=== PATIENT | female | born 1965 | race Caucasian/White ===

== ENCOUNTER → 2017-05-18 | Outpatient (CLI) | payer OTHER ==
[~2017-05-18] MED LIST: HYDR-317 PO; IBUP400T13 PO; KET10 PO; LEVO-85 PO
[2017-05-18 13:10] LABS: PLATELET COUNT, AUTOMATED 282 K/uL (150-450)
== END ==
LOC: LAB 12:51
PROVIDERS: ATTEND Anesthesiology
DX: Z01.812 Encounter for preprocedural laboratory examination (principal); S83.212A Bucket-handle tear of medial meniscus, current injury, left knee, initial encounter; M94.20 Chondromalacia, unspecified site
CPT/HCPCS: 36415; 85025

== ENCOUNTER → 2017-10-18 | Outpatient (CLI) | payer OTHER ==
--- NOTE | 2017-10-18 11:11 | RADIOLOGY IMAGING REPORT ---
FACILITY: [facility] PATIENT NAME: Lesia Waller : 1965 MR: [id number] V: [id number] EXAM DATE: ORDERING PHYSICIAN: GILBERTO EUBANKS TECHNOLOGIST: Location: [facility] Patient: Lesia Waller : 1965 Visit/Account:[id number] Date of Sevice: 10/18/2017 KNEE LEFT W/O CONTRAST COMPARISON: MRI left knee 03/14/2017 HISTORY: Postoperative 05/23/2017 bone grafting left knee. TECHNIQUE: Noncontrast axial CT of the left knee with coronal and sagittal reformats. One of the following dose optimization techniques was utilized in the performance of this exam: auto mated exposure control; adjustment of the mA and/or kV according to patient size; or use of iterative reconstruction technique. Specific details can be referenced in the facility's radiology CT exam op erational policy. CONTRAST: None. FINDINGS: BONES : Mild tricompartmental spurring consistent with tricompartmental osteoarthritis. Normal align ment. No fractures or bone lesions. Interval packing of the distal femoral and proximal tibial tunnel s with bone graft material, with partially fused bone graft in each. There are a few dense approximat jemima 1 mm loose bodies in the joint centrally, most of which are near the expected location of the pre vious ACL graft and these appear to represent loose graft fragments. Small sclerotic lesion in the la teral femoral condyle consistent with an incidental bone island. Metallic fasteners along the cortex at the distal end of bone tracts extending to the femoral and tibial tunnels. Additional lucent tract s in the proximal tibial metaphysis without associated metallic fasteners. FLUID: Trace simple appearing suprapatellar effusion. SOFT TISSUES: No muscle atrophy. OTHER: Negative. IMPRESSION: 1. Interval packing of the distal femoral and proximal tibial tunnels with bone graft material which has partially incorporated/fused in both the femoral and tibial tunnels. There are a few loose bone graft fragments in the joint centrally. 2. Mild tricompartmental osteoarthritis in the left knee. Report Dictated By: Edil Alfonso at 10/18/2017 11:01 AM Report E-Signed By: Edil Alfonso at 10/18/2017 11:08 AM WSN:[id number]
== END ==
LOC: CT 01:12
PROVIDERS: ATTEND Orthopaedic Surgery
DX: M17.12 Unilateral primary osteoarthritis, left knee (principal); T84.428A Displacement of other internal orthopedic devices, implants and grafts, initial encounter; Z98.890 Other specified postprocedural states

== ENCOUNTER → 2018-01-14 | Outpatient (REF) | payer OTHER | LOC: ZZPBJ 10:46 | PROVIDERS: ATTEND Orthopaedic Surgery | DX: M25.462 Effusion, left knee (principal) | CPT/HCPCS: 87071; 87073; 87205; 89050; 89060 ==

== ENCOUNTER → 2018-01-16 | Outpatient (CLI) | payer OTHER ==
[2018-01-16 14:46] LABS: PLATELET COUNT, AUTOMATED 517 K/uL (150-450)
== END ==
LOC: LAB 14:26
PROVIDERS: ATTEND Orthopaedic Surgery
DX: T84.54XA Infection and inflammatory reaction due to internal left knee prosthesis, initial encounter (principal)
CPT/HCPCS: 36415; 85025; 85651; 86140

== ENCOUNTER → 2018-01-23 | Outpatient (REF) | payer OTHER | LOC: ZZPBJ 19:20 | PROVIDERS: ATTEND Orthopaedic Surgery | DX: T84.54XA Infection and inflammatory reaction due to internal left knee prosthesis, initial encounter (principal) | CPT/HCPCS: 87071; 87205; 89050; 89060 ==

== ENCOUNTER → 2018-01-23 | Outpatient (CLI) | payer OTHER ==
--- NOTE | 2018-01-23 15:14 | RADIOLOGY IMAGING REPORT ---
FACILITY: [facility] PATIENT NAME: Lesia Waller : 1965 MR: [id number] V: [id number] EXAM DATE: ORDERING PHYSICIAN: GILBERTO EUBANKS TECHNOLOGIST: Location: [facility] [place] Patient: Lesia Waller : 1965 Visit/Account:[id number] Date of Sevice: 01/23/2018 Exam type: PICC LINE INSERTION History: Need for IV antibiotics Comparison: None. Findings: Informed consent was obtained. The patient's left arm was prepped and draped usual sterile fashion. Local anesthesia was accomplished with 1% lidocaine. Under sonographic and fluoroscopic guidance a 42 cm long trimmed 4 [place] single lumen power PICC was inserted via the patent left basilic vein wit h the distal tip resting in superior vena cava. The PICC line was flushed with 5 mL of saline flush. Proximal portion PICC line was adhered the patient's arm with a sterile dressing. The procedure wa s accomplished without apparent complication. The sonographic images were saved to PACS. The fluoro scopy dose area product was 26.97 micro-[place] per meter squared. IMPRESSION: 1. Successful placement of a 42 cm long trimmed 4 [place] single lumen power PICC inserted via the pa tent left basilic vein with the distal tip resting in superior vena cava Report Dictated By: Anh Bernard MD at 01/23/2018 3:09 PM Report E-Signed By: Anh Bernard MD at 01/23/2018 3:11 PM WSN:[id number]
== END ==
LOC: US 00:59
PROVIDERS: ATTEND Orthopaedic Surgery
DX: L08.9 Local infection of the skin and subcutaneous tissue, unspecified (principal)
CPT/HCPCS: 36569; 76937; C1751

== ENCOUNTER 2018-02-22 16:00 | Outpatient (RCR) | payer OTHER ==
[2018-01-23 14:50] VITALS: BP_SYST 107; BP_SYST 96; BP_DIAS 54; BP_DIAS 72
[2018-01-23 14:53] VITALS: BP_SYST 150; BP_SYST 96; BP_DIAS 54; BP_DIAS 90
[2018-01-24 12:04] VITALS: BP 135/91
[2018-02-06 16:19] VITALS: BP 137/88
[2018-02-06 16:27] LABS: PLATELET COUNT, AUTOMATED 252 K/uL (150-450)
[2018-02-13 16:22] VITALS: BP 134/86
[2018-02-20 08:06] VITALS: BP 142/94
[2018-02-20 08:16] LABS: PLATELET COUNT, AUTOMATED 384 K/uL (150-450)
[~2018-02-22 16:00] MED LIST changes: +ALTEPLASE RECOMB 2 MG VIAL IVP PRN; +DAPTOMYCIN IVPB ONE; +DAPTOMYCIN IVPB PRN; +DEXTROSE 5%(*) 100 ML BAG 100 ML IVPB PRN; +NS 0.9% IVPB ONE; +NS 0.9% IVPB PRN; +NS(*) 0.9% 100 ML BAG 100 ML IVPB PRN; +NS(*) 0.9% 500 ML BAG 500 ML IV PRN; +WATER FOR INJ,STERILE 20 ML IVP PRN
== END 2018-03-22 16:32 | disposition home or self-care (01) ==
LOC: SPU 16:00
PROVIDERS: ATTEND Orthopaedic Surgery
DX: T84.54XA Infection and inflammatory reaction due to internal left knee prosthesis, initial encounter (principal)
CPT/HCPCS: 96365 ×4; J0878 ×2; J7050 ×3; 36592 ×2; 85025 ×2; 85651 ×2; 86140 ×2; 82310; 82374; 82435; 82565; 82947; 84132; 84295; 84520